=== PATIENT | male | born 1980 | race Caucasian/White ===

== ENCOUNTER 2024-09-25 12:14 | Emergency (ER) | payer BC ==
[2024-09-25 12:20] VITALS: RESP 20; TEMP 98.9
--- NOTE | 2024-09-25 12:40 | ED ---
General Adult HPI - General Chief complaint: Urogenital Stated complaint: Abd pain Time Seen by Provider: 09/25/24 12:21 Source: patient, RN notes reviewed, old records reviewed Mode of arrival: ambulatory Limitations: physical limitation - History of Present Illness Initial comments: 43-year-old male presenting with left flank pain radiating to the groin. Pain began this morning. This was associated with nausea vomiting. No fever. No hematuria. Patient has remote history of kidney stone approximately 10 years ago. - Related Data Previous Rx's Medication Instructions Recorded HYDROcodone/APAP 5-325MG [[place] 1 tab PO Q6HR PRN #12 tab 09/25/24 5-325] Ibuprofen [Motrin] 600 mg PO Q8HR PRN #24 tab 09/25/24 Ondansetron Odt [Zofran Odt] 4 mg PO Q8HR PRN #10 tab 09/25/24 Tamsulosin [Flomax] 0.4 mg PO DAILY #7 cap 09/25/24 Allergies Allergy/AdvReac Type Severity Reaction Status Date / Time Penicillins Allergy Unknown Verified 09/25/24 12:16 Sulfa (Sulfonamide Allergy Unknown Verified 09/25/24 12:16 Antibiotics) Review of Systems ROS Statement: Those systems with pertinent positive or pertinent negative responses have been documented in the HPI. ROS Other: All systems not noted in ROS Statement are negative. Past Medical History Additional Past Medical History / Comment(s): Psoriasis. Glaucoma. Psoriatic Arthritis. Kidney Stones Past Surgical History: Unable to Obtain Smoking Status: Never smoker Past Alcohol Use History: Occasional Past Drug Use History: None Reported General Exam Limitations: physical limitation General appearance: alert, in distress Head exam: Present: atraumatic, normocephalic Eye exam: Present: normal appearance, PERRL ENT exam: Present: normal exam Neck exam: Present: normal inspection. Absent: tenderness Respiratory exam: Present: normal lung sounds bilaterally. Absent: respiratory distress, wheezes Cardiovascular Exam: Present: regular rate, normal rhythm GI/Abdominal exam: Present: soft. Absent: distended, tenderness, guarding exam: Present: vertical testicular lie. Absent: scrotal swelling Extremities exam: Present: normal inspection Back exam: Present: CVA tenderness (L) Neurological exam: Present: alert, oriented X3, CN II-XII intact. Absent: motor sensory deficit Psychiatric exam: Present: normal affect, normal mood Skin exam: Present: warm, dry, intact Course Vital Signs 09/25/24 12:16 Temperature 98.9 F Pulse Rate 98 Respiratory 20 Rate Blood Pressure 160/115 O2 Sat by Pulse 99 Oximetry Medical Decision Making - Medical Decision Making Was pt. sent in by a medical professional or institution ([facility], [facility], urgent care, hospital, or intermediate...) When possible be specific @ -No Did you speak to anyone other than the patient for history (EMS, parent, family, police, friend...)? What history was obtained from this source @ -No Did you review nursing and triage notes (agree or disagree)? Why? @ -I reviewed and agree with nursing and triage notes Were old charts reviewed (outside hosp., previous admission, EMS record, old EKG, old radiological studies, urgent care reports/EKG's, intermediate records)? Report findings @ -No old charts were reviewed Differential Abdominal Pain Men: Appendicitis, cholecystitis, diverticulosis, ischemic bowel, pancreatitis, hepatitis, UTI, gastroenteritis, AAA, incarcerated hernia, bowel obstruction, constipation, inflammatory bowel, hepatitis, peptic ulcer disease, splenic infarction, perforated viscus, testicular torsion, this is not meant to be an all-inclusive list EKG interpreted by me (3pts min.). @ -As above X-rays interpreted by me (1pt min.). @ -None done CT interpreted by me (1pt min.). @CT showing a 7 mm obstructing stone in the left ureter with mild hydronephrosis U/S interpreted by me (1pt. min.). @ -None done What testing was considered but not performed or refused? (CT, X-rays, U/S, labs)? Why? @ -None What meds were considered but not given or refused? Why? @ -None Did you discuss the management of the patient with other professionals (professionals i.e. [facility], [facility], lab, RT, psych nurse, older adult social work specialist, furniture decals inspector, teacher, money position officer, caser)? Give summary @ -No Was smoking cessation discussed for >3mins.? @ -No Was critical care preformed (if so, how long)? @ -No Were there social determinants of health that impacted care today? How? (Homelessness, low income, unemployed, alcoholism, drug addiction, transportation, low edu. Level, literacy, decrease access to med. care, [facility], rehab)? @ -No Was there de-escalation of care discussed even if they declined (Discuss DNR or withdrawal of care, Hospice)? DNR status @ -No What co-morbidities impacted this encounter? (DM, HTN, Smoking, COPD, CAD, Cancer, CVA, ARF, Chemo, Hep., AIDS, mental health diagnosis, sleep apnea, morbid obesity)? @Psoriatic arthritis, remote history of kidney stone Was patient admitted / discharged? Hospital course, mention meds given and route, prescriptions, significant lab abnormalities, going to OR and other pertinent info. @ -[43-year-old male presenting with left flank pain radiating to the groin. Patient has obstructing kidney stone in the left ureter at 7 mm. Normal white blood cell count, elevated creatinine, patient encouraged to drink plenty of fluids. He is given pain control and instructed to follow-up with urology. Undiagnosed new problem with uncertain prognosis? @ -No Drug Therapy requiring intensive monitoring for toxicity (Heparin, Nitro, Insulin, Cardizem)? @ -No Were any procedures done? @ -No Diagnosis/symptom? @Obstructing kidney stone with renal colic Acute, or Chronic, or Acute on Chronic? @ -[Acute Uncomplicated (without systemic symptoms) or Complicated (systemic symptoms)? @ -Default Side effects of treatment? @ -No Exacerbation, Progression, or Severe Exacerbation? @ -No Poses a threat to life or bodily function? How? (Chest pain, [place], [place], pneumonia, PE, COPD, DKA, ARF, appy, cholecystitis, CVA, Diverticulitis, Homicidal, Suicidal, threat to staff... and all critical care pts) @ -No - Lab Data Result diagrams: 09/25/24 13:18 09/25/24 13:18 Lab Results 09/25/24 09/25/24 09/25/24 Range/Units 13:18 13:18 13:18 WBC 10.9 H (3.8-10.6) k/uL RBC 5.40 (4.30-5.90) m/uL Hgb 16.8 (13.0-17.5) gm/dL Hct 49.5 (39.0-53.0) % MCV 91.6 (80.0-100.0) fL MCH 31.1 (25.0-35.0) pg MCHC 34.0 (31.0-37.0) g/dL RDW 13.1 (11.5-15.5) % Plt Count 153 (150-450) k/uL MPV 7.8 Neutrophils % 85 % Lymphocytes % 10 % Monocytes % 4 % Eosinophils % 0 % Basophils % 1 % Neutrophils # 9.2 H (1.3-7.7) k/uL Lymphocytes # 1.1 (1.0-4.8) k/uL Monocytes # 0.4 (0-1.0) k/uL Eosinophils # 0.0 (0-0.7) k/uL Basophils # 0.1 (0-0.2) k/uL PT 10.0 (10.0-12.5) sec INR 0.9 (<1.2) APTT 25.8 (22.0-30.0) sec Sodium (137-145) mmol/L Potassium (3.5-5.1) mmol/L Chloride (98-107) mmol/L Carbon Dioxide (22-30) mmol/L Anion Gap mmol/L BUN (9-20) mg/dL Creatinine (0.66-1.25) mg/dL Est GFR (CKD-EPI)AfAm (>60 ml/min/1.73 sqM) Est GFR (CKD-EPI)NonAf (>60 ml/min/1.73 sqM) Glucose (74-99) mg/dL Plasma Lactic Acid Kilo (0.7-2.0) mmol/L Calcium (8.4-10.2) mg/dL Total Bilirubin (0.2-1.3) mg/dL AST (17-59) U/L ALT (4-49) U/L Alkaline Phosphatase (38-126) U/L Total Protein (6.3-8.2) g/dL Albumin (3.5-5.0) g/dL Lipase (23-300) U/L Urine Color Yellow Urine Appearance Clear (Clear) Urine pH 5.5 (5.0-8.0) Ur Specific [place] 1.024 (1.001-1.035) Urine Protein 2+ H (Negative) Urine Glucose (UA) Negative (Negative) Urine Ketones Negative (Negative) Urine Blood Small H (Negative) Urine Nitrite Negative (Negative) Urine Bilirubin Negative (Negative) Urine Urobilinogen <2.0 (<2.0) mg/dL Ur Leukocyte Esterase Negative (Negative) Urine RBC 21 H (0-5) /hpf Urine WBC 1 (0-5) /hpf Hyaline Casts 1 (0-2) /lpf Urine Mucus Rare H (None) /hpf 09/25/24 09/25/24 Range/Units 13:18 13:18 WBC (3.8-10.6) k/uL RBC (4.30-5.90) m/uL Hgb (13.0-17.5) gm/dL Hct (39.0-53.0) % MCV (80.0-100.0) fL MCH (25.0-35.0) pg MCHC (31.0-37.0) g/dL RDW (11.5-15.5) % Plt Count (150-450) k/uL MPV Neutrophils % % Lymphocytes % % Monocytes % % Eosinophils % % Basophils % % Neutrophils # (1.3-7.7) k/uL Lymphocytes # (1.0-4.8) k/uL Monocytes # (0-1.0) k/uL Eosinophils # (0-0.7) k/uL Basophils # (0-0.2) k/uL PT (10.0-12.5) sec INR (<1.2) APTT (22.0-30.0) sec Sodium 138 (137-145) mmol/L Potassium 4.7 (3.5-5.1) mmol/L Chloride 105 (98-107) mmol/L Carbon Dioxide 25 (22-30) mmol/L Anion Gap 8 mmol/L BUN 24 H (9-20) mg/dL Creatinine 1.87 H (0.66-1.25) mg/dL Est GFR (CKD-EPI)AfAm 49 (>60 ml/min/1.73 sqM) Est GFR (CKD-EPI)NonAf 43 (>60 ml/min/1.73 sqM) Glucose 150 H (74-99) mg/dL Plasma Lactic Acid Kilo 1.4 (0.7-2.0) mmol/L Calcium 9.4 (8.4-10.2) mg/dL Total Bilirubin 0.6 (0.2-1.3) mg/dL AST 34 (17-59) U/L ALT 46 (4-49) U/L Alkaline Phosphatase 61 (38-126) U/L Total Protein 8.6 H (6.3-8.2) g/dL Albumin 4.9 (3.5-5.0) g/dL Lipase 71 (23-300) U/L Urine Color Urine Appearance (Clear) Urine pH (5.0-8.0) Ur Specific [place] (1.001-1.035) Urine Protein (Negative) Urine Glucose (UA) (Negative) Urine Ketones (Negative) Urine Blood (Negative) Urine Nitrite (Negative) Urine Bilirubin (Negative) Urine Urobilinogen (<2.0) mg/dL Ur Leukocyte Esterase (Negative) Urine RBC (0-5) /hpf Urine WBC (0-5) /hpf Hyaline Casts (0-2) /lpf Urine Mucus (None) /hpf Disposition Clinical Impression: Kidney stone on left side, Renal colic on left side Disposition: HOME SELF-CARE Condition: Fair Instructions (If sedation given, give patient instructions): Kidney Stones (ED), How to Strain Your Urine (ED) Prescriptions: Tamsulosin [Flomax] 0.4 mg PO DAILY #7 cap Ibuprofen [Motrin] 600 mg PO Q8HR PRN #24 tab PRN Reason: Pain HYDROcodone/APAP 5-325MG [[place] 5-325] 1 tab PO Q6HR PRN #12 tab PRN Reason: Pain Ondansetron Odt [Zofran Odt] 4 mg PO Q8HR PRN #10 tab PRN Reason: Vomiting Is patient prescribed a controlled substance at d/c from ED?: No Referrals: None,Stated [Primary Care Provider] - 1-2 days Vic Campbell MD [STAFF PHYSICIAN] - 1-2 days Time of Disposition: 13:40
--- NOTE | 2024-09-25 12:52 | CT ---
EXAMINATION TYPE: CT abdomen pelvis wo con DATE OF EXAM: 09/25/2024 COMPARISON: None CLINICAL INDICATION: Male, 43 years old with history of left flank pain; PHH, LEFT FLANK PAIN TECHNIQUE: CT scan of the abdomen and pelvis is performed without oral or IV contrast. CT DLP: 1408.[address] CTDI: mGy Automated exposure control for dose reduction was used. Findings: The lungs are clear. Gallbladder is normal and there is no gallstone, wall thickening, pericholecystic fluid or distention . There is no biliary ductal dilatation. There is no organomegaly of the liver, pancreas, spleen or adrenal glands. There is mild to moderate left hydronephrosis and hydroureter secondary to a 7.3 mm obstructing calcu kenton in the mid left ureter. There is a 6.75 nonobstructing left renal calcification. There are no rig ht renal calcifications or right-sided hydronephrosis. The caliber of the abdominal aorta is normal and there is no retroperitoneal adenopathy or hemorrhage . The bowel loops are normal in caliber is no evidence of obstruction. No inflammatory changes are iden tified in the mesentery and there is no free intraperitoneal air or fluid. There is no pelvic mass, free fluid, abscess or adenopathy. The osseous structures and soft tissues are unremarkable. IMPRESSION: Mild to moderate left hydronephrosis and hydroureter secondary to a 7.3 mm obstructing calculus in t he mid left ureter. There is an additional 6.75 nonobstructing left renal calcification. No other sig nificant abnormalities within the abdomen or pelvis. [facility], , 09/25/2024 12:50 PM
[2024-09-25] MEDS: ONDANSETRON 4 MG/2 ML VIAL IVP STA (13:22)
[2024-09-25] MEDS: KETOROLAC 15 MG/ML 1 ML VIAL IVP STA (13:22)
[2024-09-25] MEDS: HYDROmorphone 0.5 MG/0.5 ML SYRINGE IVP STA (13:22)
[2024-09-25] MEDS: SODIUM CHLORIDE 0.9% 1,000 ML IV STA (13:23)
[2024-09-25 13:34] LABS: Basophils # (A) 0.1 k/uL (0-0.2); Basophils % (A) 1 %; Eosinophils % (A) 0 %; HCT 49.5 % (39.0-53.0); HGB 16.8 gm/dL (13.0-17.5); Lymphocytes # (A) 1.1 k/uL (1.0-4.8); Lymphocytes % (A) 10 %; MCH 31.1 pg (25.0-35.0); MCV 91.6 fL (80.0-100.0); Mean Platelet Volume 7.8; Monocytes # (A) 0.4 k/uL (0-1.0); Monocytes % (A) 4 %; Neutrophils # (A) 9.2 k/uL (1.3-7.7); Neutrophils % (A) 85 %; Platelet Count 153 k/uL (150-450); RDW 13.1 % (11.5-15.5); WBC 10.9 k/uL (3.8-10.6)
[2024-09-25 13:43] LABS: INR 0.9 (<1.2); Partial Thromboplastin Time 25.8 sec (22.0-30.0)
[2024-09-25 13:49] LABS: ALT 46 U/L (4-49); AST 34 U/L (17-59); African American GFR (CKD) 49 (>60 ml/min/1.73 sqM); Albumin 4.9 g/dL (3.5-5.0); Alkaline Phosphatase 61 U/L (38-126); Anion Gap 8 mmol/L; Blood Urea Nitrogen 24 mg/dL (9-20); Calcium 9.4 mg/dL (8.4-10.2); Carbon Dioxide 25 mmol/L (22-30); Chloride 105 mmol/L (98-107); Glucose 150 mg/dL (74-99); Lipase 71 U/L (23-300); Non-African American GFR(CKD) 43 (>60 ml/min/1.73 sqM); Potassium 4.7 mmol/L (3.5-5.1); Sodium 138 mmol/L (137-145); Total Bilirubin 0.6 mg/dL (0.2-1.3); Total Protein 8.6 g/dL (6.3-8.2)
[2024-09-25 13:51] LABS: Appearance,Urine Clear (Clear); Bilirubin,Urine Negative (Negative); Blood,Urine Small (Negative); Color,Urine Yellow; Glucose,Urine (UA) Negative (Negative); Hyaline Casts,Urine 1 /lpf (0-2); Ketones,Urine Negative (Negative); Leukocyte Esterase,Urine Negative (Negative); Mucus,Urine Rare /hpf; Nitrite,Urine Negative (Negative); PH, Urine 5.5 (5.0-8.0); Protein,Urine 2+ (Negative); RBC,Urine 21 /hpf (0-5); Specific Gravity,Urine 1.024 (1.001-1.035); Urobilinogen,Urine <2.0 mg/dL (<2.0); WBC,Urine 1 /hpf (0-5)
[2024-09-25 14:08] VITALS: BP 124/78; PULSE 94
== END 2024-09-25 14:09 | disposition home or self-care (01) ==
LOC: EC 12:14
DX: N13.2 Hydronephrosis with renal and ureteral calculous obstruction (principal); L40.50 Arthropathic psoriasis, unspecified; Z88.0 Allergy status to penicillin; Z88.2 Allergy status to sulfonamides
CPT/HCPCS: 99284; 96374; 96375 ×2; 96361; 36415; 80053; 83605; 83690; 85025; 85610; 85730; 81001; 74176; J2405; J1885; J1171

== ENCOUNTER 2024-09-30 10:43 | Day surgery (SDC) | payer BC ==
[2024-09-29 10:02] VITALS: BMI 41.5
--- NOTE | 2024-09-30 10:17 | P.GSHP ---
History of Present Illness H&P Date: 09/30/24 Chief Complaint: Left renal colic The patient is a 44-year-old white male with a history of urolithiasis. He now presents with a 1 week history of left flank and abdominal pain. CT scan shows mild to moderate left hydronephrosis due to a 7.3 mm left mid ureteral calculus. CT scan also shows 2 left renal calculi measuring up to 6.7 mm in size. He was offered the options of medical expulsion therapy, extracorporal shockwave lithotripsy (ESWL), and ureteroscopic removal of the calculi. He has chosen to undergo the latter. He now comes for left ureteral stent insertion, and will undergo ureteroscopic removal of the calculi in October 14. - Constitutional Constitutional: Denies chills, Denies fever - Gastrointestinal Gastrointestinal: Reports nausea - Genitourinary (Male) Genitourinary: Reports flank pain, Reports hematuria, Reports kidney stones Past Medical History Past Medical History: Eye Disorder, GERD/Reflux, Skin Disorder Additional Past Medical History / Comment(s): Glaucoma, Psoriasis, Psoriatic Arthritis, kidney stones. History of Any Multi-Drug Resistant Organisms: None Reported Past Surgical History: Unable to Obtain Additional Past Surgical History / Comment(s): Surgery for kidney stone. Past Anesthesia/Blood Transfusion Reactions: No Reported Reaction Smoking Status: Never smoker - Past Family History Mother Family Medical History: No Reported History Medications and Allergies Home Medications Medication Instructions Recorded Confirmed Type HYDROcodone/APAP 5-325MG [[place] 1 tab PO Q6HR PRN #12 tab 09/25/24 09/29/24 Rx 5-325] Ibuprofen [Motrin] 600 mg PO Q8HR PRN #24 tab 09/25/24 09/29/24 Rx Tamsulosin [Flomax] 0.4 mg PO DAILY #7 cap 09/25/24 09/29/24 Rx Ondansetron Odt [Zofran Odt] 4 mg PO Q8HR PRN 09/29/24 09/29/24 History Allergies Allergy/AdvReac Type Severity Reaction Status Date / Time Penicillins Allergy Unknown Verified 09/29/24 09:41 Sulfa (Sulfonamide Allergy Unknown Verified 09/29/24 09:41 Antibiotics) Surgical - Exam - General well developed, well nourished, moderate distress - Neck no masses, trachea midline - Respiratory normal expansion - Abdomen Soft, non-distended, no mass. Mild left-sided tenderness, no guarding or rebound. - Genitourinary normal penis with no external lesions, testicles non-tender - Psychiatric oriented to time, oriented to person, oriented to place, speech is normal, memory intact Results - Imaging CT scan - abdomen: report reviewed, image reviewed Assessment and Plan (1) Hydronephrosis with renal and ureteral calculous obstruction Status: Acute Code(s): N13.2 - HYDRONEPHROSIS WITH RENAL AND URETERAL CALCULOUS OBSTRUCTION SNOMED Code(s): 061906541 Plan: Cystoscopy, left ureteral stent insertion. The procedure has been reviewed in detail with the patient, specifically the rationale and potential risks, which include anesthesia, bleeding, infection, ureteral injury, and inability to successfully place the stent. If difficulty is encountered, ureteroscopy may be required.
[~2024-09-30 10:43] MED LIST: HYDROmorphone 0.5 MG/0.5 ML SYRINGE IVP PRN
[2024-09-30] MEDS: IV FLUID CONTINUATION 1,000 ML IV ONE ×2 (11:22→16:30)
--- NOTE | 2024-09-30 11:47 | XR ---
EXAMINATION TYPE: XR KUB DATE OF EXAM: 09/30/2024 11:04 AM COMPARISON: 02/09/2014 CLINICAL INDICATION: Male, 44 years old with history of N13.2 left hydronephrosis; PHH TECHNIQUE: One radiographic view of the abdomen was obtained. FINDINGS: The bowel gas pattern is nonspecific without dilated loops of small or large bowel. . Fecal material and gas are demonstrated throughout the colon and rectum. There is no evidence for organome james or pneumoperitoneum. The osseous structures are intact. Left renal calculi measuring up to 6 m m. IMPRESSION: 1. Left renal calculus. 2. Nonspecific bowel gas pattern without radiographic evidence for acute process. [facility], , 09/30/2024 11:45 AM
[2024-09-30] MEDS: MIDAZOLAM 2 MG/2 ML VIAL IV ONE (11:48)
[2024-09-30] MEDS: FAMOTIDINE 20 MG/2 ML VIAL IV STA (11:50)
[2024-09-30] MEDS: DEXAMETHASONE SOD PHOSPHATE 4 MG/ML 1 ML VIAL IV ONE (11:51)
[2024-09-30] MEDS: ONDANSETRON 4 MG/2 ML VIAL IVP ONE (11:51)
[2024-09-30] MEDS: fentaNYL (PF) 50 MCG/ML 2 ML AMP IVP PRN (12:06)
[2024-09-30] MEDS: hydrALAZINE HCL 20 MG/ML 1 ML VIAL IVP ONE (12:14)
[2024-09-30] MEDS: LACTATED RINGERS 1,000 ML IV SCH (12:18)
[2024-09-30] MEDS ORDERED: fentaNYL (PF) 50 MCG/ML 2 ML AMP ONE (13:08)
[2024-09-30] MEDS ORDERED: LABETALOL 5 MG/ML VIAL MDV ONE (13:08)
[2024-09-30] MEDS ORDERED: PROPOFOL 10 MG/ML 20 ML VIAL IV ONE (13:08)
[2024-09-30] MEDS ORDERED: MIDAZOLAM 2 MG/2 ML VIAL ONE (13:08)
[2024-09-30] MEDS ORDERED: SUCCINYLCHOLINE CHLORIDE 200 MG/10 ML VIAL IV ONE (13:08)
[2024-09-30] MEDS ORDERED: LIDOCAINE 1% INJ 10MG/ML (20 ML MDV) ONE (13:08)
--- NOTE | 2024-09-30 13:42 | P.OP ---
Date of Procedure: 09/30/24 Preoperative Diagnosis: Left hydronephrosis secondary to left ureteral calculus Postoperative Diagnosis: Same Procedure(s) Performed: Cystoscopy, left ureteral stent insertion Anesthesia: DMITRY Surgeon: Vic Campbell Estimated Blood Loss (ml): 0 IV fluids (ml): 300 Pathology: none sent Condition: stable Disposition: PACU Indications for Procedure: The patient is a 44-year-old white male with a history of urolithiasis. He now presents with a 1 week history of left flank and abdominal pain. CT scan shows mild to moderate left hydronephrosis due to a 7.3 mm left mid ureteral calculus. CT scan also shows 2 left renal calculi measuring up to 6.7 mm in size. He was offered the options of medical expulsion therapy, extracorporal shockwave lithotripsy (ESWL), and ureteroscopic removal of the calculi. He has chosen to undergo the latter. He now comes for left ureteral stent insertion, and will undergo ureteroscopic removal of the calculi in October 14. Operative Findings: Left distal ureteral calculus. Successful left ureteral stent insertion. Description of Procedure: The patient was taken to the operating room and placed in the dorsolithotomy position, with legs supported in Cruz stirrups. The external genitalia was prepped and draped sterilely. The 30 lens was used to introduce the 22-Armenian Stortz cystoscopic sheath through the urethra and into the bladder under direct vision. The prostatic urethra showed evidence of a mildly obstructing high median bar. The bladder was examined in its entirety. Both ureteral orifices were of normal anatomic location and configuration. No tumors or foreign bodies were seen. A 0.035 inch Glidewire was passed through the cystoscope. The left ureteral orifice was cannulated, and the Glidewire was slowly advanced beyond the left distal ureteral calculus and up to the renal pelvis. A 24 cm, 6-Armenian double-J ureteral stent was placed over the wire. Proper stent positioning was verified fluoroscopically and endoscopically. The bladder was emptied and the cystoscope removed. The patient tolerated the procedure well and was taken to the recovery room in stable condition.
[2024-09-30 14:27] VITALS: TEMP 96.8
--- NOTE | 2024-09-30 15:27 | FL ---
EXAMINATION TYPE: FL guidance operating room DATE OF EXAM: 09/30/2024 2:11 PM COMPARISON: Pre Operative Images if available both CT/MRI or plain film CLINICAL INDICATION: Male, 44 years old with history of CYSTOSCOPY LEFT URETERAL STENT; TECHNIQUE: FL guidance operating room, multiple fluoroscopic images provided for procedure. Total fluoroscopy time: 20.3 seconds Total submitted images to PACS: 4 DAP: [id number] mGym2 Gycm2 uGym2 cGycm2 or equivalent. FINDINGS: Multiple intraoperative fluoroscopic images were taken resulting in ureteral stent placement with sup erior pigtail in appropriate position projecting over the renal pelvis. No immediate intraoperative c omplication. Multilevel degeneration changes throughout the spine. IMPRESSION: 1. No evidence for intraoperative complication. 2. Please see the operative/procedural note for further details. [facility], , 09/30/2024 3:24 PM
[2024-09-30] MEDS: METOPROLOL TARTRATE 5 MG/5 ML VIAL IVP STA (15:33)
[2024-09-30] MEDS: ENALAPRILAT 1.25 MG/ML 1 ML VIAL IVP STA (16:16)
[2024-09-30 17:12] VITALS: BP 160/92; PULSE 107; RESP 17
== END 2024-09-30 17:30 | disposition home or self-care (01) ==
LOC: OR 10:43
PROVIDERS: ATTEND Urology
DX: N13.2 Hydronephrosis with renal and ureteral calculous obstruction (principal); K21.9 Gastro-esophageal reflux disease without esophagitis; H40.9 Unspecified glaucoma; M19.90 Unspecified osteoarthritis, unspecified site; G47.33 Obstructive sleep apnea (adult) (pediatric); Z88.0 Allergy status to penicillin; Z88.2 Allergy status to sulfonamides; Z88.1 Allergy status to other antibiotic agents; Z79.1 Long term (current) use of non-steroidal anti-inflammatories (NSAID); Z79.899 Other long term (current) drug therapy
CPT/HCPCS: 74018; 52332; C2625; C1769; J2250; J0330; J0360; J1100; J0690; J2405; J2003; J3010; J3490; J2704; J1920

== ENCOUNTER 2024-10-14 05:56 | Day surgery (SDC) | payer BC ==
--- NOTE | 2024-10-13 19:49 | P.GSHP ---
History of Present Illness H&P Date: 10/13/24 Chief Complaint: Left renal colic The patient is a 44-year-old white male with a history of urolithiasis. He now presents with a 1 week history of left flank and abdominal pain. CT scan shows mild to moderate left hydronephrosis due to a 7.3 mm left mid ureteral calculus. CT scan also shows 2 left renal calculi measuring up to 6.7 mm in size. He was offered the options of medical expulsion therapy, extracorporal shockwave lithotripsy (ESWL), and ureteroscopic removal of the calculi. He has chosen to undergo the latter. He underwent left ureteral stent insertion on September 30, at which time it was evident that the calculus had migrated to the distal ureter, and he now comes for ureteroscopic removal of the calculi. - Constitutional Constitutional: Denies chills, Denies fever - Gastrointestinal Gastrointestinal: Reports nausea - Genitourinary (Male) Genitourinary: Reports flank pain, Reports hematuria, Reports kidney stones Past Medical History Additional Past Medical History / Comment(s): Psoriasis- chest right now. Glaucoma. Psoriatic Arthritis. Kidney Stones History of Any Multi-Drug Resistant Organisms: None Reported Past Surgical History: Unable to Obtain Additional Past Surgical History / Comment(s): ureteral stent placed Past Anesthesia/Blood Transfusion Reactions: No Reported Reaction Smoking Status: Never smoker - Past Family History Mother Family Medical History: Diabetes Mellitus, Myocardial Infarction ([place]) Additional Family Medical History / Comment(s): kidney transplant. attempted liver transplant Medications and Allergies Home Medications Medication Instructions Recorded Confirmed Type HYDROcodone/APAP 5-325MG [[place] 1 tab PO Q6HR PRN #12 tab 09/25/24 10/08/24 Rx 5-325] Ibuprofen [Motrin] 600 mg PO Q8HR PRN #24 tab 09/25/24 10/08/24 Rx Tamsulosin [Flomax] 0.4 mg PO DAILY #7 cap 09/25/24 10/08/24 Rx Ondansetron Odt [Zofran Odt] 4 mg PO Q8HR PRN 09/29/24 10/08/24 History Ketorolac [Toradol] 10 mg PO Q6HR PRN 10/08/24 10/08/24 History Latanoprost [Latanoprost 0.005%] 1 drop BOTH EYES HS 10/08/24 10/08/24 History Otc Zyrtec 1 tab PO DIRECTED PRN 10/08/24 10/08/24 History Secukinumab [Cosentyx Sensoready 300 mg SQ Q30D 10/08/24 10/08/24 History (2 Pens)] Unk Vitamn D 1 tab PO DAILY 10/08/24 10/08/24 History Allergies Allergy/AdvReac Type Severity Reaction Status Date / Time Penicillins Allergy Unknown Verified 10/08/24 14:37 Sulfa (Sulfonamide Allergy Unknown Verified 10/08/24 14:37 Antibiotics) Results - Imaging Abdominal x-ray: report reviewed, image reviewed CT scan - abdomen: report reviewed, image reviewed Assessment and Plan (1) Kidney stone on left side Status: Acute Code(s): N20.0 - CALCULUS OF KIDNEY SNOMED Code(s): 03318651 (2) Calculus of ureter Status: Acute Code(s): N20.1 - CALCULUS OF URETER SNOMED Code(s): 06780383 Plan: Cystoscopy, left ureteral stent removal, left ureteroscopy with Holmium laser lithotripsy and stone basketing. The patient is aware of potential risks, which include anesthesia, bleeding, infection, ureteral injury, and inability to remove both renal calculi.
[2024-10-14] MEDS ORDERED: LIDOCAINE 1% (10MG/ML) FOR IV START INTRADERMA PRN (06:26)
[2024-10-14] MEDS ORDERED: droPERidol 5 MG/2 ML VIAL IVP PRN (06:26)
[2024-10-14] MEDS: IV FLUID CONTINUATION 1,000 ML IV ONE (07:14)
[2024-10-14] MEDS: LACTATED RINGERS 1,000 ML IV SCH (07:16)
[2024-10-14] MEDS: DEXAMETHASONE SOD PHOSPHATE 4 MG/ML 1 ML VIAL IV ONE (07:18)
[2024-10-14] MEDS: ONDANSETRON 4 MG/2 ML VIAL IVP ONE (07:19)
[2024-10-14] MEDS ORDERED: LIDOCAINE 1% INJ 10MG/ML (20 ML MDV) ONE (07:34)
[2024-10-14] MEDS ORDERED: GLYCOPYRROLATE 0.2 MG/ML 2 ML VIAL ONE (07:34)
[2024-10-14] MEDS ORDERED: ROCURONIUM 10 MG/ML (5 ML VIAL) IV ONE (07:34)
[2024-10-14] MEDS ORDERED: PROPOFOL 10 MG/ML 20 ML VIAL IV ONE (07:34)
[2024-10-14] MEDS ORDERED: MIDAZOLAM 2 MG/2 ML VIAL ONE (07:34)
[2024-10-14] MEDS ORDERED: SUCCINYLCHOLINE CHLORIDE 200 MG/10 ML VIAL IV ONE (07:34)
[2024-10-14] MEDS ORDERED: NEOSTIGMINE 1 MG/ML 10 ML VIAL ONE (07:34)
[2024-10-14] MEDS ORDERED: KETOROLAC 15 MG/ML 1 ML VIAL ONE (07:34)
--- NOTE | 2024-10-14 07:36 | XR ---
EXAMINATION TYPE: XR KUB DATE OF EXAM: 10/14/2024 6:44 AM COMPARISON: 09/30/2024 CLINICAL INDICATION: Male, 44 years old with history of N20.1 left ureteral / N20.0 renal calculi, pr eoperative exam prior to cystoscopy. FINDINGS: Left-sided ureteral stent present. A couple small calcifications measuring up to 4 mm are noted along the distal aspect of the left side, unchanged from prior. A couple calcifications left mid abdomen m easure up to 5 mm and are unchanged as well. Nonobstructive bowel gas pattern. IMPRESSION: Left ureteral stent noted. A couple calcifications along the distal aspect of the stent measure up to 4 mm, unchanged. Additional 5 mm left renal stone also redemonstrated. [facility], , 10/14/2024 7:34 AM
--- NOTE | 2024-10-14 08:47 | FL ---
EXAMINATION TYPE: FL guidance operating room DATE OF EXAM: 10/14/2024 HISTORY: Fluoroscopy time Total dose area product (DAP) in uGy*m?, mGy*cm? (or similar): 3.0048 IMPRESSION: 1. Fluoroscopy time. [facility], , 10/14/2024 8:45 AM
--- NOTE | 2024-10-14 08:48 | P.OP ---
Date of Procedure: 10/14/24 Preoperative Diagnosis: Left ureteral calculus, left renal calculi Postoperative Diagnosis: Same Procedure(s) Performed: Cystoscopy, left ureteral stent removal, left ureteroscopy with Holmium laser lithotripsy and stone basketing Anesthesia: DMITRY Surgeon: Vic Campbell Estimated Blood Loss (ml): 0 IV fluids (ml): 200 Condition: stable Disposition: PACU Indications for Procedure: The patient is a 44-year-old white male with a history of urolithiasis. He now presents with a 1 week history of left flank and abdominal pain. CT scan shows mild to moderate left hydronephrosis due to a 7.3 mm left mid ureteral calculus. CT scan also shows 2 left renal calculi measuring up to 6.7 mm in size. He was offered the options of medical expulsion therapy, extracorporal shockwave lithotripsy (ESWL), and ureteroscopic removal of the calculi. He has chosen to undergo the latter. He underwent left ureteral stent insertion on September 30, at which time it was evident that the calculus had migrated to the distal ureter, and he now comes for ureteroscopic removal of the calculi. Operative Findings: Left distal ureteral calculus and left upper pole renal calculus, both successfully removed. Left lower pole renal calculus not seen. Description of Procedure: The patient was taken to the operating room and placed in the dorsolithotomy position, with legs supported in Cruz stirrups. The external genitalia was prepped and draped sterilely. The 30 lens was used to introduce the 21-Sami Martell cystoscopic sheath through the urethra and into the bladder under direct vision. The prostatic urethra showed evidence of mild lateral lobe enlargement. The bladder was examined in its entirety and was unremarkable. Grasping forceps were used to grasp the distal end of the left ureteral stent, which was removed along with the cystoscope. The Martell semirigid ureteroscope was advanced into the bladder under direct vision, and the left ureteral orifice was cannulated. The ureteroscope was slowly advanced under direct vision, up to the left distal ureteral calculus. The 272 micron Holmium laser probe was passed through the ureteroscope, and lithotripsy was performed. As the calculus fragmented, the fragments passed di stally into the bladder. Final inspection of the ureter showed no residual calculus fragments, and no evidence of ureteral trauma. A 0.038 inch Glidewire was passed through the ureteroscope, which was removed. The Martell Cobra flexible ureteroscope was then passed over the wire, up to the left renal pelvis. Each calyx was examined. The lower pole calculus could not be identified. The upper pole calyx was identified, measuring 3 to 4 mm in size. The calculus was partially fragmented, then the main portion of the calculus was removed using the stone basket. After removing the ureteroscope, the cystoscope was replaced into the bladder to remove calculus fragments. These were saved and sent for chemical analysis. The bladder was emptied and the cystoscope removed. The patient tolerated the procedure well and was taken to the recovery room in stable condition. [facility] [place] Report: Procedure Acuity: Elective Stone Size and Location: 7 mm, left distal ureter. 3 to 4 mm, left upper pole. Ureteral Dilation: No Ureteral Access Sheath Used: No Stone Sent for Analysis: Yes All Stones/Fragments Were Removed with a Basket: Yes Complications: No Preoperative Antibiotics Given: Yes Stent Placed: No Discharge Medications: None
[2024-10-14 08:53] VITALS: TEMP 97.5
[2024-10-14] MEDS: HYDROmorphone 0.5 MG/0.5 ML SYRINGE IVP PRN (09:14)
[2024-10-14] MEDS: hydrALAZINE HCL 20 MG/ML 1 ML VIAL IVP STA (09:21)
[2024-10-14] MEDS: METOPROLOL TARTRATE 5 MG/5 ML VIAL IVP STA (09:26)
[2024-10-14 10:13] VITALS: BP 139/83; PULSE 75; RESP 16
== END 2024-10-14 10:49 | disposition home or self-care (01) ==
LOC: OR 05:56
PROVIDERS: ATTEND Urology
DX: N13.2 Hydronephrosis with renal and ureteral calculous obstruction (principal); I10 Essential (primary) hypertension; G47.33 Obstructive sleep apnea (adult) (pediatric); Z79.620 Long term (current) use of immunosuppressive biologic; Z79.899 Other long term (current) drug therapy; Z96.0 Presence of urogenital implants; Z88.0 Allergy status to penicillin; Z88.2 Allergy status to sulfonamides
CPT/HCPCS: 82365; 74018; 52353; C1769; J2250; J0330; J0360; J1100; J2710; J0690; J2405; J2003; J1885; J2704; J1171; J1596

== ENCOUNTER → 2024-12-08 | Outpatient (CLI) | payer BC ==
--- NOTE | 2024-12-08 14:01 | XR ---
EXAMINATION TYPE: XR KUB DATE OF EXAM: 12/08/2024 1:56 PM COMPARISON: 10/14/2024 CLINICAL INDICATION: Male, 44 years old with history of N20.0 CALCULUS OF KIDNEY, TECHNIQUE: XR KUB view(s) obtained. Supine position FINDINGS: Nonspecific bowel gas pattern Psoas margins are normal. No organomegaly is present. No mass effect is evident. There may be a 0.6 cm calcification at the inferior pole left kidney. IMPRESSION: 1. Nonspecific abdomen. 2. Persistent 0.6 cm calcification may be at the inferior pole left kidney. [facility], , 12/08/2024 1:59 PM
--- NOTE | 2024-12-08 14:38 | US ---
EXAMINATION TYPE: US kidneys/renal and bladder DATE OF EXAM: 12/08/2024 COMPARISON: XR, CT 2023 CLINICAL INDICATION: Male, 44 years old with history of N20.0 CALCULUS OF KIDNEY; Left hydro/stone pr ior. TECHNIQUE: Grayscale imaging of the bilateral kidneys and urinary bladder: FINDINGS: EXAM MEASUREMENTS: Right Kidney: 10.9 x 5.7 x 5.3 cm Left Kidney: 11.7 x 5.4 x 5.5 cm Right Kidney: Limited visibility of lower pole due to gas. No hydronephrosis or masses seen Left Kidney: *Hyperechoic focus with twinkle artifact seen lower pole: 0.7 x 0.7 x 0.5 cm. Bladder: Appears wnl. Wall measures upper limits at 0.33 cm. Bilateral Jets seen: Yes IMPRESSION: Nonobstructing renal stone inferior pole left kidney. [facility], , 12/08/2024 2:35 PM
== END | disposition home or self-care (01) ==
LOC: RADUSWWP 13:28
PROVIDERS: ATTEND Urology
DX: N13.2 Hydronephrosis with renal and ureteral calculous obstruction (principal)
CPT/HCPCS: 74018; 76770